=== PATIENT | female | born 1985 | race Two or more races ===

== ENCOUNTER 2020-07-14 12:56 | Emergency (ER) | payer MEDICAID ==
[~2020-07-14] VITALS: Ht 152.4 cm; Wt 56.0 kg
--- NOTE | 2020-07-14 13:26 | NUR ---
[facility] AT BEDSIDE FOR EVALUATION.
[2020-07-14] MEDS ORDERED: DIPH,PERTUSS(ACELL),TET VAC/PF 0.5 ML IM-VACC ONE ×2 (13:30→14:00)
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
[2020-07-14] MEDS ORDERED: NEOSPORIN OINT. PKT 1 PACKET ONE (14:03)
--- NOTE | 2020-07-14 14:07 | NUR ---
BREAK RN: [facility] BEDSIDE RIGHT NOW AND EMT CURRENTLY CLEANING WOUNDS.
--- NOTE | 2020-07-14 14:34 | NUR ---
TETANUS VACCINE GIVEN.
--- NOTE | 2020-07-14 14:36 | NUR ---
ADRIANA THORPE AT BEDSIDE.
[2020-07-14 15:00] VITALS: BP 143/98
--- NOTE | 2020-07-14 15:58 | NUR ---
Patient given discharge instructions and they have confirmed that they understand the instructions. Patient stable and ambulatory with steady gait from ED to private vehicle.
== END 2020-07-14 15:59 | disposition home or self-care (01) ==
LOC: ED 15:35
DX: S41.111A Laceration without foreign body of right upper arm, initial encounter (principal); X58.XXXA Exposure to other specified factors, initial encounter; Y93.89 Activity, other specified; Y92.89 Other specified places as the place of occurrence of the external cause; Y99.8 Other external cause status
CPT/HCPCS: 90471; 90715; 99283